=== PATIENT | female | born 1965 | race Caucasian/White ===

== ENCOUNTER 2018-12-24 01:00 | Emergency (ER) | payer OTHER ==
[2018-12-24 02:41] VITALS: BMI 36.6
--- NOTE | 2018-12-24 02:54 | PDOC ---
History of Present Illness - General Chief Complaint: Pain Stated Complaint: ABD PAIN Time Seen by Provider: 12/24/18 02:50 - History of Present Illness Initial Comments: 12/24/18 02:54 53 year old female with history of DM, HTN, kidney stones, disc herniation and hypothyroidism who presents with 15 days of RUQ abdominal pain rated 10/10 that is pressure like, initially intermittent but constant over the past 10 days and is nonradiating. The patient notes associated R chest pain that is rated 8/10 that has been intermittent for the past 15 days. She states that when she eats the pain worsens and causes her to feel nauseous. She had a subjective fever yesterday and reports 1 episode of NBNB vomiting this AM. Patient has had gallbladder and appendix removed Past History - Past Medical History Allergies/Adverse Reactions: Allergies Allergy/AdvReac Type Severity Reaction Status Date / Time No Known Allergies Allergy Verified 12/24/18 02:41 Home Medications: Ambulatory Orders Unobtainable 07/28/18 COPD: Yes Diabetes: Yes HTN: Yes Thyroid Disease: Yes (Hypothyroid) - Suicide/Smoking/Psychosocial Hx Smoking History: Never smoked Have you smoked in the past 12 months: No Information on smoking cessation initiated: No Hx Alcohol Use: No Drug/Substance Use Hx: No Substance Use Type: None *Physical Exam - Vital Signs Last Vital Signs Temp Pulse Resp BP Pulse Ox 97.8 F 84 16 149/55 L 99 12/24/18 01:00 12/24/18 01:00 12/24/18 01:00 12/24/18 01:00 12/24/18 01:00 - Physical Exam Comments: 12/24/18 05:54 + RUQ tenderness to palpation Moderate Sedation - Procedure Monitoring Vital Signs: Procedure Monitoring Vital Signs Temperature 97.8 F 12/24/18 01:00 Pulse Rate 84 12/24/18 01:00 Respiratory Rate 16 12/24/18 01:00 Blood Pressure 149/55 L 12/24/18 01:00 O2 Sat by Pulse Oximetry (%) 99 12/24/18 01:00 ED Treatment Course - LABORATORY CBC & Chemistry Diagram: 12/24/18 03:35 12/24/18 03:35 Medical Decision Making - Medical Decision Making 12/24/18 03:46 ED Course: consider pancreatitis vs obstruction vs cbd stone r/o acs vs arrythmia vs pna cbc, cmp, trop, ekg, cxr ivf, morphine, zofran *DC/Admit/Observation/Transfer - Discharge Dispostion Condition at time of disposition: Fair - Referrals Referrals: Benito Zuniga MD [Primary Care Provider] - - Patient Instructions - Post Discharge Activity
[2018-12-24] MEDS ORDERED: ONDANSETRON 4 MG/2 ML VIAL IVPUSH ONE (03:38)
[2018-12-24] MEDS ORDERED: morphine CARPU-JECT 4 MG/1 ML DISP.SYRIN IVPUSH ONE (03:38)
[2018-12-24] MEDS ORDERED: SODIUM CHLORIDE 1,000 ML IV SCH (03:45)
[2018-12-24] MEDS ORDERED: morphine SULFATE 4 MG/ML VIAL ONE (03:46)
[2018-12-24] MEDS ORDERED: ONDANSETRON 4 MG/2 ML VIAL ONE (03:46)
[2018-12-24 03:55] LABS: BASO % 0.6 % (0-2.0); EOS % 3.1 % (0-4.5); HEMATOCRIT 36.5 % (32.4-45.2); MCH 32.6 pg (25.7-33.7); MCHC 35.6 g/dl (32.0-36.0); MEAN CELL VOLUME 91.7 fl (80-96); MEAN PLT VOLUME 9.5 fl (7.5-11.1); MONO % 5.7 % (3.8-10.2); NEUT % 60.6 % (42.8-82.8); PLATELET COUNT 161 K/MM3 (134-434); RBC 3.98 M/mm3 (3.60-5.2); RDW 13.7 % (11.6-15.6); WHITE BLOOD COUNT 8.5 K/mm3 (4.0-10.0)
--- NOTE | 2018-12-24 04:02 | PDOC ---
Attending Attestation - Resident Resident Name: Lizy Arroyo - ED Attending Attestation I have performed the following: I have examined & evaluated the patient, The case was reviewed & discussed with the resident, I agree w/resident's findings & plan, Exceptions are as noted - HPI HPI: 12/24/18 04:00 53 yo F with h/o appendectomy, cholecystectomy here wtih co abd pain n/v . did have subjective fever and chills. also c/o right sided chest pain. no cough. no urinary complaints. does have h/o HTN renal colic. noted urine was dark, no dysrua, no frequency no urgency. no flank pain. - Physicial Exam PE: 12/24/18 04:01 awake alert lungs clear bilaterally heart rrr no mrg abd soft rlq ttp, right upper quad ttp. no rebound no guarding. no cva tendernss. nuero alert oriented x 3. - Medical Decision Making 12/24/18 04:02 differential sbo, colitis, uti, pyelo renal colic, pna, acs. plan labs ct a/p ua iv hydration zofran morphine. Heart Score/ECG Review #1 ECG reviewed & interpreted by me at: 04:03 General ECG Interpretation: Sinus Rhythm, Normal Rate (86), Normal Intervals, No acute ischemic changes
[2018-12-24 04:22] LABS: ALBUMIN 3.4 g/dl (3.4-5.0); ALK PHOS 127 U/L (45-117); ANION GAP 6 MMOL/L (8-16); BILIRUBIN,TOTAL 0.3 mg/dL (0.2-1); BLOOD UREA NITROGEN 16 mg/dL (7-18); CALCIUM 9.1 mg/dL (8.5-10.1); CHLORIDE 106 mmol/L (98-107); CO2 29 mmol/L (21-32); CREATININE 0.8 mg/dL (0.55-1.3); GLUCOSE,RANDOM 135 mg/dL (74-106); LIPASE 165 U/L (73-393); SGOT/AST 46 U/L (15-37); SGPT/ALT 61 U/L (13-61); SODIUM 141 mmol/L (136-145); TOT PROT 7.2 g/dl (6.4-8.2)
[2018-12-24 08:00] LABS: URINE APPEARANCE CLEAR; URINE BILIRUBIN NEGATIVE (<2.0 mg/dL); URINE COLOR YELLOW; URINE GLUCOSE (UA) NEGATIVE (NEGATIVE); URINE KETONE NEGATIVE (NEGATIVE); URINE LEUK ESTERASE NEGATIVE (NEGATIVE); URINE NITRITE NEGATIVE (NEGATIVE); URINE PROTEIN NEGATIVE (NEGATIVE); URINE UROBILINOGEN NEGATIVE mg/dL (0.2-1.0)
[2018-12-24 08:04] VITALS: BP 156/72; PULSE 72; TEMP 97.5
[2018-12-24] MEDS ORDERED: FAMOTIDINE 20 MG/50 ML IVPB 20 MG/50 ML MG IVPB ONE ×2 (08:05→09:00)
[2018-12-24] MEDS ORDERED: MAG HYDROX/AL HYDROX/SIMETH -MYLANTA- ORAL SUSPENSION PO ONE (08:05)
--- NOTE | 2018-12-24 08:05 | PDOC ---
*Physical Exam - Vital Signs Last Vital Signs Temp Pulse Resp BP Pulse Ox 97.8 F 84 16 149/55 L 99 12/24/18 01:00 12/24/18 01:00 12/24/18 01:00 12/24/18 01:00 12/24/18 01:00 - Physical Exam Comments: 12/24/18 08:03 labs unremarkable CXR unremarkable CT abdomen/pelvis w cont unremarkable for intraabdominal pathology. Shows some gastroesophageal reflux of contrast. Patients symptoms may be due to GERD, will give maalox and famotidine and dc home with a 7 day script for ppi. Will ask for pcp f/u 12/24/18 08:06 patient feels better after the above treatment, says she will f/u with pcp within a week 12/24/18 08:08 12/24/18 08:08 12/24/18 09:49 Gastrointestinal/Abdominal: positive: Normal Bowel Sounds, Tender (mildly tender epigastrin RUQ), Flat, Soft ED Treatment Course - LABORATORY CBC & Chemistry Diagram: 12/24/18 03:35 12/24/18 03:35 - ADDITIONAL ORDERS Additional order review: Laboratory Results 12/24/18 12/24/18 03:35 03:35 Sodium 141 Potassium 4.0 Chloride 106 Carbon Dioxide 29 Anion Gap 6 L BUN 16 Creatinine 0.8 Creat Clearance w eGFR > 60 Random Glucose 135 H Calcium 9.1 Total Bilirubin 0.3 AST 46 H ALT 61 Alkaline Phosphatase 127 H Troponin I < 0.02 Total Protein 7.2 Albumin 3.4 Lipase 165 12/24/18 03:35 RBC 3.98 MCV 91.7 MCHC 35.6 RDW 13.7 MPV 9.5 Neutrophils % 60.6 Lymphocytes % 30.0 Monocytes % 5.7 Eosinophils % 3.1 Basophils % 0.6 - Medications Given in the ED: ED Medications Discontinued Medications Generic Name Dose Route Start Last Admin Trade Name Freq PRN Reason Stop Dose Admin Morphine Sulfate 4 mg 12/24/18 03:38 12/24/18 04:00 Morphine Injection - IVPUSH 12/24/18 03:39 4 mg ONCE ONE Administration Ondansetron HCl 4 mg 12/24/18 03:38 12/24/18 04:00 Zofran Injection IVPUSH 12/24/18 03:39 4 mg ONCE ONE Administration *DC/Admit/Observation/Transfer Diagnosis at time of Disposition: GERD (gastroesophageal reflux disease) - Discharge Dispostion Disposition: HOME Condition at time of disposition: Good Decision to Admit order: No - Prescriptions Prescriptions: Pantoprazole Sodium 40 mg PO DAILY #7 tablet.dr - Referrals Referrals: Benito Zuniga MD [Primary Care Provider] - - Patient Instructions Printed Discharge Instructions: Gastroesophageal Reflux Disease (Alternative Therapy) Additional Instructions: Your CT scan of abdomen/pevis did not show anything abnormal other than mild gastroesophageal reaflux. Your pain is likely due to that (gastritis) we sent your pharmacy a script for pantoprazole, take it once daily either in the morning or at night. follow up with your primary doctor within a week. Print Language: PANAMANIAN - Post Discharge Activity
--- NOTE | 2018-12-24 08:16 | PDOC ---
*Physical Exam - Vital Signs Last Vital Signs Temp Pulse Resp BP Pulse Ox 97.5 F L 72 20 156/72 98 12/24/18 08:03 12/24/18 08:03 12/24/18 08:03 12/24/18 08:03 12/24/18 08:03 ED Treatment Course - LABORATORY CBC & Chemistry Diagram: 12/24/18 03:35 12/24/18 03:35 - ADDITIONAL ORDERS Additional order review: Laboratory Results 12/24/18 12/24/18 12/24/18 06:46 03:35 03:35 Sodium 141 Potassium 4.0 Chloride 106 Carbon Dioxide 29 Anion Gap 6 L BUN 16 Creatinine 0.8 Creat Clearance w eGFR > 60 Random Glucose 135 H Calcium 9.1 Total Bilirubin 0.3 AST 46 H ALT 61 Alkaline Phosphatase 127 H Troponin I < 0.02 Total Protein 7.2 Albumin 3.4 Lipase 165 Urine Color Yellow Urine Appearance Clear Urine pH 5.0 Ur Specific [place] 1.027 Urine Protein Negative Urine Glucose (UA) Negative Urine Ketones Negative Urine Blood Negative Urine Nitrite Negative Urine Bilirubin Negative Urine Urobilinogen Negative Ur Leukocyte Esterase Negative 12/24/18 03:35 RBC 3.98 MCV 91.7 MCHC 35.6 RDW 13.7 MPV 9.5 Neutrophils % 60.6 Lymphocytes % 30.0 Monocytes % 5.7 Eosinophils % 3.1 Basophils % 0.6 - Medications Given in the ED: ED Medications Discontinued Medications Generic Name Dose Route Start Last Admin Trade Name Freq PRN Reason Stop Dose Admin Morphine Sulfate 4 mg 12/24/18 03:38 12/24/18 04:00 Morphine Injection - IVPUSH 12/24/18 03:39 4 mg ONCE ONE Administration Ondansetron HCl 4 mg 12/24/18 03:38 12/24/18 04:00 Zofran Injection IVPUSH 12/24/18 03:39 4 mg ONCE ONE Administration Medical Decision Making - Medical Decision Making 12/24/18 08:14 Received this patient on sign out She has a h/o appendectomy and cholecystectomy presents with severe right sided abdominal pain which is elicited on palpation of the abdomen Awaiting CT report HISTORY: Abdominal pain COMPARISON: None. FINDINGS: There Is No Bowel Obstruction or Inflammation. Negative for diverticulitis or colitis. Appendix not visualized. No pericecal inflammation. Normal liver. Normal spleen. Normal pancreas. Normal adrenal glands. Normal kidneys and urinary tracts and urinary bladder. No obvious abnormalities of the reproductive organs. There is some gastroesophageal reflux of contrast. Osseous structures are intact. Will plan to discharge to home 12/24/18 09:58 Pt given GI cocktail pt states she feels better Will discharge to home Follow up with PMD *DC/Admit/Observation/Transfer Diagnosis at time of Disposition: GERD (gastroesophageal reflux disease) - Discharge Dispostion Disposition: HOME Condition at time of disposition: Fair - Prescriptions Prescriptions: Pantoprazole Sodium 40 mg PO DAILY #7 tablet.dr - Referrals Referrals: Benito Zuniga MD [Primary Care Provider] - - Patient Instructions Printed Discharge Instructions: Gastroesophageal Reflux Disease (Alternative Therapy) Additional Instructions: Your CT scan of abdomen/pevis did not show anything abnormal other than mild gastroesophageal reaflux. Your pain is likely due to that (gastritis) we sent your pharmacy a script for pantoprazole, take it once daily either in the morning or at night. follow up with your primary doctor within a week. Print Language: MOHAWK - Post Discharge Activity
[2018-12-24] MEDS ORDERED: MAG HYDROX/AL HYDROX/SIMETH 30 ML UNIT-DOSE CUP ONE (09:00)
--- NOTE | 2018-12-24 15:05 | EKG ---
Test Reason : Blood Pressure : / mmHG Vent. Rate : 083 BPM Atrial Rate : 083 BPM P-R Int : 128 ms QRS Dur : 080 ms QT Int : 414 ms P-R-T Axes : 029 026 063 degrees QTc Int : 486 ms POOR DATA QUALITY, INTERPRETATION MAY BE ADVERSELY AFFECTED NORMAL SINUS RHYTHM NORMAL ECG NO PREVIOUS ECGS AVAILABLE Confirmed by Donny Carlos MD ([id number]) on 12/24/2018 3:05:07 PM Referred By: Confirmed By:Donny Carlos MD
== END 2018-12-24 10:01 | disposition home or self-care (01) ==
LOC: JER 01:00
PROC: 3E033GC Introduction of Other Therapeutic Substance into Peripheral Vein, Percutaneous Approach (ICD-10-PCS; principal; 2018-12-24)
PROC: 3E033GC Introduction of Other Therapeutic Substance into Peripheral Vein, Percutaneous Approach (ICD-10-PCS; 2018-12-24)
PROC: 3E033NZ Introduction of Analgesics, Hypnotics, Sedatives into Peripheral Vein, Percutaneous Approach (ICD-10-PCS; 2018-12-24)
DX: K21.9 Gastro-esophageal reflux disease without esophagitis (principal)
CPT/HCPCS: 36415; 71045-TC-FY; 74177-TC; 80053; 81003; 83690; 84484; 85025; 87086; 93005; 93010; 96365; 96375; 99283-25; J7030

== ENCOUNTER 2023-06-19 22:48 | Emergency (ER) | payer OTHER ==
[2023-06-19 22:55] VITALS: BMI 37.4
[2023-06-20] MEDS ORDERED: ACETAMINOPHEN 1000 MG/100 ML BAG IVPB ONE
[2023-06-20] MEDS ORDERED: METHOCARBAMOL 500 MG TABLET PO ONE (00:01)
[2023-06-20] MEDS ORDERED: METHOCARBAMOL 500 MG TABLET ONE ×2 (00:08→00:09)
[2023-06-20] MEDS ORDERED: ACETAMINOPHEN INJECTION 100 ML IVPB ONE (00:09)
[2023-06-20 01:08] LABS: BASO % 0.4 % (0-2.0); EOS % 3.4 % (0-4.5); HEMATOCRIT 38.3 % (32.4-45.2); LYMPH % 27.1 % (8-40); MCH 30.4 pg (25.7-33.7); MCHC 33.9 g/dl (32.0-36.0); MEAN CELL VOLUME 89.6 fl (80-96); MEAN PLT VOLUME 9.8 fl (7.5-11.1); NEUT % 64.1 % (42.8-82.8); PLATELET COUNT 145 10^3/uL (134-434); RBC 4.28 M/mm3 (3.60-5.2); RDW 14.4 % (11.6-15.6); WHITE BLOOD COUNT 7.5 K/mm3 (4.0-10.0)
[2023-06-20 01:25] LABS: INR 1.14 (0.83-1.09); PROTHROMBIN TIME (PATIENT) 13.2 SEC (9.7-13.0)
[2023-06-20 01:29] LABS: ACTIVATED PTT 37.5 SECONDS (25.2-36.5)
[2023-06-20 01:37] LABS: CALCIUM 9.8 mg/dL (8.5-10.1)
[2023-06-20 01:38] LABS: ALBUMIN 3.5 g/dl (3.4-5.0); BLOOD UREA NITROGEN 16.1 mg/dL (7-18)
[2023-06-20 01:41] LABS: CREATININE 0.8 mg/dL (0.55-1.3)
[2023-06-20 01:42] LABS: BILIRUBIN,TOTAL 0.4 mg/dL (0.2-1); TOT PROT 7.6 g/dl (6.4-8.2)
[2023-06-20 01:45] LABS: N-TERMINAL BNP 26.5 pg/ml (5-125)
[2023-06-20 04:45] LABS: URINE APPEARANCE CLEAR; URINE BILIRUBIN NEGATIVE (NEGATIVE); URINE COLOR YELLOW; URINE GLUCOSE (UA) TRACE (NEGATIVE); URINE KETONE NEGATIVE (NEGATIVE); URINE LEUK ESTERASE NEGATIVE (NEGATIVE); URINE NITRITE NEGATIVE (NEGATIVE); URINE PROTEIN TRACE (NEGATIVE); URINE UROBILINOGEN 0.2 mg/dL (0.2-1.0)
[2023-06-20 10:53] VITALS: BP 132/70; PULSE 72; RESP 18; TEMP 96
== END 2023-06-20 05:45 | disposition home or self-care (01) ==
LOC: JER 22:48
PROC: 3E033NZ Introduction of Analgesics, Hypnotics, Sedatives into Peripheral Vein, Percutaneous Approach (ICD-10-PCS; principal; 2023-06-19)
DX: M54.32 Sciatica, left side (principal); M25.562 Pain in left knee; R10.84 Generalized abdominal pain; R22.42 Localized swelling, mass and lump, left lower limb
CPT/HCPCS: 36415; 71045-TC-FY; 73564-TC-LT-FY; 73564-TC-RT-FY; 74177-TC; 80053; 81003; 83880; 84443; 84484; 85025; 85610; 85730; 87086; 93005; 93010; 93970-TC; 99285-25